=== PATIENT | female | born 1970 | race Caucasian/White ===

== ENCOUNTER → 2017-02-09 | Outpatient (CLI) | payer BC ==
--- NOTE | ~2017-02-09 | US128 ---
[id number] [facility] [address]. [place], [place] [address] [id number] O MR#: [id number] Acc #: [id number] NAME: BAYRON CAMACHO : 1970 SEX: F STUDY DATE/TIME: 02/09/2017 13:38 UNIT: CGUS ROOM: STUDY DESCRIPTION: US Thyroid Attending Physician: Brendan Cotton M.D. Referring Physician: Brendan Cotton M.D. Ordering Physician: Brendan Cotton M.D. Primary Care Physician: Lizzie Lipscomb MEDICAL IMAGING REPORT This report is preliminary unless electronic signature is present EXAM Ultrasound of the thyroid gland INDICATION Bilateral thyroid nodules. These were seen on a thyroid ultrasound from June 23, 2015. TECHNIQUE Noland-scale and color Doppler sonographic images were obtained through the thyroid gland. FINDINGS Right lobe measured 1.9 x 4.3 x 1.3 cm. Left lobe measured 1.7 x 3.6, x 1.0 cm. Isthmus measures about 2 mm in thickness. There is a cyst within the right lobe of the thyroid gland which measures 4 x 3 x 5 mm and within the left lobe of the thyroid gland, there is a tiny hypoechoic nodule measuring 2 x 1 x 2 mm. Both of these were present in June of 2015 and are unchanged. IMPRESSION 1. Stable cyst within the right lobe of the thyroid gland. 2. A second tiny hypoechoic nodule within the left lobe of the thyroid gland is unchanged when compared to June of 2015 and is favored to be benign. No new nodules are seen. Dictated by... Ct Rangel M.D. THIS IS AN ELECTRONICALLY VERIFIED REPORT Ct Rangel M.D. at 02/12/2017 1:10 PM AFF/rnr TD: 02/10/2017 21:59 JOB #: [id number] MEDICAL IMAGING REPORT Page 1 of 1 COPY
== END | disposition home or self-care (01) ==
LOC: CGUS 13:07
DX: E04.2 Nontoxic multinodular goiter (principal)
CPT/HCPCS: 76536